=== PATIENT | female | born 1990 | race Caucasian/White ===

== ENCOUNTER 2021-04-29 00:35 | Emergency (ER) | payer BC ==
[~2021-04-29] VITALS: Ht 165.1 cm; Wt 54.4 kg
--- NOTE | 2021-04-29 00:36 | NUR ---
LISA MCPHERSON TAKEN TO BED #11
[2021-04-29 00:44] VITALS: BP 105/70
--- NOTE | 2021-04-29 00:45 | NUR ---
PATIENT 30 Y/O FEMALE BIBA FOR C/O LOW BACK PAIN/INJURY S/P GYM INJURY. PER PATIENT, " I HEARD MY BACK POP WHEN I WAS LIFTING WEIGHTS." PATIENT STATES PAIN 10/10 WHEN EMS ARRIVED BUT RECIVED FENTANYL 100MCG. PATIENT NOW HAS A PAIN LEVEL OF 6/10, SHARP, THROBBING, AND PROVOKED BY MOVEMENT. PATIENT PLACED ON HOTEL ATTENDANT. VSS. MEDHX: NONE NKA
[2021-04-29] MEDS ORDERED: HYDROcodone/APAP 5/325 MG 1 TAB TAB PO ONE (00:55)
--- NOTE | 2021-04-29 01:23 | NUR ---
Dr. Cohen examining patient.
--- NOTE | 2021-04-29 01:30 | NUR ---
PATIENT STATES,"MY PAIN IS NOT TOO BAD LONG I STAY STILL. WHEN I MOVE IT HURTS AGAIN." PATIENT STATES PAIN 4/10 IN LOW BACK. PATIENT STATES SHE DOES NOT WAS PAIN MEDICATIONS AT THIS TIME. WARM COMPRESS GIVEN FOR COMFORT MEASURES. PATIENT REMAINS ON SCORER SINGLE. VSS.
--- NOTE | 2021-04-29 01:32 | NUR ---
PT TAKEN TO XRAY
--- NOTE | 2021-04-29 01:56 | NUR ---
PT RETURN FROM XRAY
[2021-04-29] MEDS ORDERED: KETOROLAC 30 MG/ML VIAL IM ONE (02:20)
--- NOTE | 2021-04-29 03:42 | NUR ---
Patient appears to be resting comfortably in bed. Vital Signs within normal limits. Respirations even and unlabored.
--- NOTE | 2021-04-29 04:22 | NUR ---
PATIENT ABLE TO AMBULATED TO RESTROOM WITH STEADY GAIT.
[2021-04-29] MEDS ORDERED: IBUP-2213 PO (05:05)
[2021-04-29] MEDS ORDERED: LID5T TP (05:05)
[2021-04-29 05:40] VITALS: BP 106/67
--- NOTE | 2021-04-29 05:40 | NUR ---
Patient discharged with v/s stable. Written and verbal after care instructions given and explained. Patient alert, oriented and verbalized understanding of instructions. Ambulatory with steady gait. All questions addressed prior to discharge. ID band removed. Patient advised to follow up with PMD. Rx of IBUPROFEN, LIDOCAINE PATCH given. Patient educated on indication of medication including possible reaction and side effects. Opportunity to ask questions provided and answered.
== END 2021-04-29 05:40 | disposition home or self-care (01) ==
LOC: MED 00:35
DX: M54.9 Dorsalgia, unspecified (principal)
CPT/HCPCS: 72110; 72114; 96372; 99284; J1885